=== PATIENT | male | born 1945 | race African-American/Black ===

== ENCOUNTER 2020-01-11 10:36 | Inpatient (IN) | payer OTHER ==
[~2020-01-11] VITALS: Ht 185.4 cm; Wt 67.7 kg
--- NOTE | 2020-01-11 10:55 | Emergency Room Report ---
History of Present Illness General Source: Patient, EMS Present Illness HPI Patient is a 74-year-old male past medical history of hypertension and PTSD who was brought into the ER from his boarding care by EMS for generalized weakness. Patient states that he is very tired and just needs a place to sleep. Patient 's landlord apparently called EMS because the patient has not been eating and has been weak. Patient denies any fever or chills. He denies any chest pain, abdominal pain or shortness of breath. Patient does states that he has not been eating and just needs to sleep. Allergies: Coded Allergies: No Known Allergies (Unverified , 01/11/20) Patient History Reviewed Nursing Documentation: PMH: Agreed; PSxH: Agreed Review of Systems All Other Systems: negative except mentioned in HPI Physical Exam Sp02 EP Interpretation: reviewed, normal General Appearance: alert, GCS 15, non-toxic, mild distress, thin, Chronically Ill Head: normocephalic, atraumatic Eyes: bilateral eye normal inspection, bilateral eye PERRL ENT: dry mucus membranes Neck: full range of motion, supple, no meningismus Respiratory: no respiratory distress, speaking full sentences Cardiovascular #1: tachycardia Gastrointestinal: non tender, soft, no guarding, no rebound Rectal: deferred Musculoskeletal: normal range of motion 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 Due to a high probability of clinically significant, life threatening deterioration, the patient required my highest level of preparedness to intervene emergently and I personally spent this critical care time directly and personally managing the patient. This critical care time included obtaining a history; examining the patient; pulse oximetry; ordering and review of studies; arranging urgent treatment with development of a management plan; evaluation of patient's response to treatment ; frequent reassessment; and, discussions with other providers.This critical care time was performed to assess and manage the high probability of imminent, life-threatening deterioration that could result in multi-organ failure. It was exclusive of separately billable procedures and treating other patients and teaching time. Please see MDM section and the rest of the note for further information on patient assessment and treatment. Medical Decision Making Diagnostic Impression: Primary Impression: Acute renal failure Additional Impressions: Dehydration Sepsis Rhabdomyolysis Elevated troponin Hypernatremia ER Course Patient reevaluated at 12:30 PM. His heart rate is improved. His heart rate is currently in the 90s. He is awake alert and talking. He states that he feels much better and is thirsty. Dr. Coleman called from radiology. He states that the patient has what appears to be a meningioma but is suggesting an MRI brain to ensure that there is no small bleed. MRI brain has been ordered and is pending. Patient pending MRI. Patient signed out to Dr. Chacon at 1400. If MRI demonstrates meningioma patient can be admitted here otherwise patient will need to be transferred to [facility] for higher level of care. EKG Diagnostic Results EKG Time: 10:55 EP Interpretation: Darshana Guillen MD Rate: tachycardiac Rhythm: other - Sinus tachycardia ST Segments: other - Fuhs T wave inversions ASA given to the pt in ED: No Rhythm Strip Diag. Results Rhythm Strip Time: 11:04 EP Interpretation: yes - Darshana Guillen MD Rate: 126 bpm Rhythm: NSR, no PVC's, no ectopy Chest X-Ray Diagnostic Results Chest X-Ray Diagnostic Results : Chest X-Ray Ordered: Yes # of Views/Limited/Complete: 1 View Indication: Other - weakness EP Interpretation: Yes Interpretation: no consolidation, no effusion, no pneumothorax, no acute cardiopulmonary disease Impression: No acute disease Electronically Signed by: Darshana Guillen MD Signed Out To: Dr. Chacon at 1400 Scripts Unable to Obtain Active Prescriptions or Reported Meds Additional Instructions: Please note that this report is being documented using [employer] technology. This can lead to erroneous entry secondary to incorrect interpretation by the dictating instrument. Sepsis Event Note Evaluation Current Stage of Sepsis: Sepsis Possible Source: Unknown Focused Exam Allergies: Coded Allergies: No Known Allergies (Unverified , 01/11/20) Date Exam Occurred: Jan 11, 2020 Time Exam Occurred: 12:21 Laboratory Studies Laboratory Tests Test 01/11/20 11:04 White Blood Count 14.0 K/UL (4.8-10.8) H Red Blood Count 6.31 M/UL (4.70-6.10) H Hemoglobin 18.6 G/DL (14.2-18.0) *H Hematocrit 60.0 % (42.0-52.0) H Mean Corpuscular Volume 95 FL (80-99) Mean Corpuscular Hemoglobin 29.5 PG (27.0-31.0) Mean Corpuscular Hemoglobin Concent 31.0 G/DL (32.0-36.0) L Red Cell Distribution Width 13.6 % (11.6-14.8) Platelet Count 294 K/UL (150-450) Mean Platelet Volume 6.7 FL (6.5-10.1) Neutrophils (%) (Auto) 82.4 % (45.0-75.0) H Lymphocytes (%) (Auto) 11.6 % (20.0-45.0) L Monocytes (%) (Auto) 5.0 % (1.0-10.0) Eosinophils (%) (Auto) 0.0 % (0.0-3.0) Basophils (%) (Auto) 0.9 % (0.0-2.0) Prothrombin Time 13.7 SEC (9.30-11.50) H Prothromb Time International Ratio 1.3 (0.9-1.1) H Activated Partial Thromboplast Time 28 SEC (23-33) Sodium Level 173 MMOL/L (136-145) *H Potassium Level 4.0 MMOL/L (3.5-5.1) Chloride Level 127 MMOL/L (98-107) H Carbon Dioxide Level 24 MMOL/L (21-32) Anion Gap 22 mmol/L (5-15) H Blood Urea Nitrogen 108 mg/dL (7-18) H Creatinine 5.2 MG/DL (0.55-1.30) H Estimat Glomerular Filtration Rate 13.2 mL/min (>60) Glucose Level 170 MG/DL (74-106) H Lactic Acid Level 3.00 mmol/L (0.4-2.0) H Calcium Level 10.3 MG/DL (8.5-10.1) H Magnesium Level 3.9 MG/DL (1.8-2.4) H Total Bilirubin 1.3 MG/DL (0.2-1.0) H Direct Bilirubin 0.2 MG/DL (0.0-0.3) Aspartate Amino Transf (AST/SGOT) 83 U/L (15-37) H Alanine Aminotransferase (ALT/SGPT) 47 U/L (12-78) Alkaline Phosphatase 58 U/L (46-116) Total Creatine Kinase 4250 U/L (26-308) H Troponin I 0.658 ng/mL (0.000-0.056) Pro-B-Type Natriuretic Peptide 408 pg/mL (0-125) H Total Protein 10.0 G/DL (6.4-8.2) H Albumin 4.7 G/DL (3.4-5.0) Globulin 5.3 g/dL Albumin/Globulin Ratio 0.9 (1.0-2.7) L Vital Signs Last 24 Hour Vital Signs Date Time Temp Pulse Resp B/P (MAP) Pulse Ox O2 Delivery O2 Flow Rate FiO2 01/11/20 10:51 98.8 130 16 100/70 (80) 99 Room Air Respiratory Exam: Clear Cardiovascular Exam: Tachycardia Capillary Refill: Less Than 2 Seconds Peripheral Pulse: Strong Darshana Guillen M.D. Jan 11, 2020 10:54
[2020-01-11 11:30] VITALS: BP 103/77
[2020-01-11 11:35] LABS: BASOPHILS % (AUTO) 0.9 % (0.0-2.0); LYMPHOCYTES % (AUTO) 11.6 % (20.0-45.0); MEAN CORPUSCULAR VOLUME 95 FL (80-99); NEUTROPHILS % (AUTO) 82.4 % (45.0-75.0); PLATELET COUNT 294 K/UL (150-450); RED BLOOD COUNT 6.31 M/UL (4.70-6.10); RED CELL DISTRIBUTION WIDTH 13.6 % (11.6-14.8)
[2020-01-11 11:46] LABS: HEMOGLOBIN 18.6 G/DL (14.2-18.0); INR 1.3 (0.9-1.1)
[2020-01-11 12:04] LABS: ALANINE AMINOTRANSFERASE 47 U/L (12-78); ALBUMIN 4.7 G/DL (3.4-5.0); ALBUMIN/GLOBULIN RATIO 0.9 (1.0-2.7); ALKALINE PHOSPHATASE 58 U/L (46-116); ANION GAP 22 mmol/L (5-15); ASPARTATE AMINO TRANSFERASE 83 U/L (15-37); BILIRUBIN,TOTAL 1.3 MG/DL (0.2-1.0); BLOOD UREA NITROGEN 108 mg/dL (7-18); CALCIUM 10.3 MG/DL (8.5-10.1); CARBON DIOXIDE 24 MMOL/L (21-32); CHLORIDE 127 MMOL/L (98-107); CREATINE KINASE 4250 U/L (26-308); CREATININE 5.2 MG/DL (0.55-1.30)
[2020-01-11 12:06] LABS: BILIRUBIN,DIRECT 0.2 MG/DL (0.0-0.3); SODIUM 173 MMOL/L (136-145)
[2020-01-11] MEDS ORDERED: Vancomycin 1 GM in NS 275 ML IVPB ONE (12:15)
[2020-01-11] MEDS ORDERED: Cefepime HCl 2 GM in D5W 55 ML IVPB ONE (12:15)
[2020-01-11] MEDS ORDERED: Sodium Bicarbonate 50ml Carp IV ONE (12:30)
[2020-01-11] MEDS ORDERED: Sodium Bicarbonate 150 ML in 1/2 NS 1000ml 1,000 ML IV ONE (12:30)
[2020-01-11] MEDS: Aspirin Baby 81mg ORAL ONE ×2 (12:50→18:20)
--- NOTE | 2020-01-11 13:04 | Diagnostic Imaging Report ---
Indications: Altered mental status and weakness Technique: Spiral acquisitions obtained through the brain. Angled axial and coronal 5 x 5 mm slices were reconstructed. Total dose length product 1072 mGycm. CTDI vol(s) 53 mGy. Dose reduction achieved using automated exposure control Comparison: None. Findings: 8 x 6 mm hyperattenuating focus protrudes from the left side of the posterior falx. This does not result in any significant mass effect. No other evidence of acute intracranial hemorrhage or edema. No mass effect nor midline shift. There is an area of encephalomalacia in the inferior medial parasagittal right frontal lobe. There is a much smaller area of encephalomalacia in the adjacent inferior medial parasagittal left frontal lobe. Otherwise normal pineda-white differentiation. Visualized orbits and sinuses are unremarkable. The mastoids are clear. The calvarium is intact. Impression: 8 x 6 mm hyperattenuating focus protruding the left side of posterior falx. Most likely a tiny meningioma. No resultant mass effect. Tiny focus of extra-axial hemorrhage deemed much less likely but not completely excludable. Consider MRI to clarify if clinically indicated, or compare to any prior studies that may be available. No other evidence of acute intracranial hemorrhage or mass effect. Bilateral right greater than left frontal encephalomalacia, may indicate prior infarcts or contusions. Other chronic and age-related changes, as described No The CT scanner at [facility] is accredited by the [employer] and the scans are performed using protocols designed to limit radiation exposure to as low as reasonably achievable to attain images of sufficient resolution adequate for diagnostic evaluation.
[2020-01-11 14:10] VITALS: BP 113/82
--- NOTE | 2020-01-11 16:06 | Diagnostic Imaging Report ---
Indication: Cough Technique: One view of the chest Comparison: none Findings: Lungs are hyperinflated. Lungs and pleural spaces are clear. The heart size is normal. Impression: No acute process
[2020-01-11 16:21] VITALS: BP 110/79
--- NOTE | 2020-01-11 16:21 | Diagnostic Imaging Report ---
Indication: Altered mental status, evaluation of abnormality seen on prior CT scan Technique: sagittal T1 fast spin echo, axial T1 FLAIR, axial T2 FLAIR, axial T2 FS PROPELLER, axial T2* GRE, axial diffusion weighted images. ADC and exponential ADC maps generated. No postcontrast imaging obtained. Comparison: Reference made to brain CT of 3 hours earlier Findings: No postcontrast images obtained, per patient request. This somewhat limits exam. Corresponding to the abnormality described in the adjacent to the left side of the posterior falx is a 6 x 5 mm focus. This demonstrates intermediate signal intensity on most of the sequences, with a very slight low signal intensity rim. It does demonstrate low signal intensity on the diffusion images. No abnormal areas of restricted diffusion to suggest acute infarction. No acute hemorrhage or edema. No mass effect nor midline shift. Mild age-related enlargement of the ventricles and extra-axial CSF spaces is noted. Encephalomalacia in the right anterior inferior frontal lobe is noted. There is also small amount of encephalomalacia in the left anterior inferior frontal lobe. These findings were also described on recent CT scan. The vascular flow voids are preserved. The visualized orbits and sinuses are unremarkable.. Visualized orbits and sinuses are unremarkable. 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
[2020-01-11 18:00] VITALS: BP 114/60
--- NOTE | 2020-01-11 18:06 | Cardiac Electrophysiology PN ---
Subjective Subjective [id number] Objective Last 24 Hour Vital Signs Date Time Temp Pulse Resp B/P (MAP) Pulse Ox O2 Delivery O2 Flow Rate FiO2 01/11/20 16:21 98.8 88 19 110/79 100 Room Air 01/11/20 14:10 98.8 87 17 113/82 96 Room Air 01/11/20 11:30 98.8 85 18 103/77 97 Room Air 01/11/20 11:30 123 17 Room Air 99 01/11/20 10:51 98.8 130 16 100/70 (80) 99 Room Air Laboratory Tests Test 01/11/20 11:04 01/11/20 12:15 White Blood Count 14.0 K/UL (4.8-10.8) H Red Blood Count 6.31 M/UL (4.70-6.10) H Hemoglobin 18.6 G/DL (14.2-18.0) *H Hematocrit 60.0 % (42.0-52.0) H Mean Corpuscular Volume 95 FL (80-99) Mean Corpuscular Hemoglobin 29.5 PG (27.0-31.0) Mean Corpuscular Hemoglobin Concent 31.0 G/DL (32.0-36.0) L Red Cell Distribution Width 13.6 % (11.6-14.8) Platelet Count 294 K/UL (150-450) Mean Platelet Volume 6.7 FL (6.5-10.1) Neutrophils (%) (Auto) 82.4 % (45.0-75.0) H Lymphocytes (%) (Auto) 11.6 % (20.0-45.0) L Monocytes (%) (Auto) 5.0 % (1.0-10.0) Eosinophils (%) (Auto) 0.0 % (0.0-3.0) Basophils (%) (Auto) 0.9 % (0.0-2.0) Prothrombin Time 13.7 SEC (9.30-11.50) H Prothromb Time International Ratio 1.3 (0.9-1.1) H Activated Partial Thromboplast Time 28 SEC (23-33) Sodium Level 173 MMOL/L (136-145) *H Potassium Level 4.0 MMOL/L (3.5-5.1) Chloride Level 127 MMOL/L (98-107) H Carbon Dioxide Level 24 MMOL/L (21-32) Anion Gap 22 mmol/L (5-15) H Blood Urea Nitrogen 108 mg/dL (7-18) H Creatinine 5.2 MG/DL (0.55-1.30) H Estimat Glomerular Filtration Rate 13.2 mL/min (>60) Glucose Level 170 MG/DL (74-106) H Lactic Acid Level 3.00 mmol/L (0.4-2.0) H 3.00 mmol/L (0.66-2.22) H Calcium Level 10.3 MG/DL (8.5-10.1) H Magnesium Level 3.9 MG/DL (1.8-2.4) H Total Bilirubin 1.3 MG/DL (0.2-1.0) H Direct Bilirubin 0.2 MG/DL (0.0-0.3) Aspartate Amino Transf (AST/SGOT) 83 U/L (15-37) H Alanine Aminotransferase (ALT/SGPT) 47 U/L (12-78) Alkaline Phosphatase 58 U/L (46-116) Total Creatine Kinase 4250 U/L (26-308) H Troponin I 0.658 ng/mL (0.000-0.056) Pro-B-Type Natriuretic Peptide 408 pg/mL (0-125) H Total Protein 10.0 G/DL (6.4-8.2) H Albumin 4.7 G/DL (3.4-5.0) Globulin 5.3 g/dL Albumin/Globulin Ratio 0.9 (1.0-2.7) Huan Martínez MD Jan 11, 2020 18:06
--- NOTE | 2020-01-11 18:09 | History and Physical ---
History of Present Illness General Date patient seen: Jan 11, 2020 Time patient seen: 17:45 Reason for Hospitalization: Generalized Weakness Present Illness HPI 74 year old gentlemen who is a poor historian with unknown PMG presents from [facility] with lethargy and weakness. He stats he has been feeling tired for the last week. He states he has been eating one meal a day and drinking water. He has no fever, dysuria, abdominal pain, chest pain, cough or SOB. He states he wants to go back to his room and the [facility] and care and does not want to be here. In the ED he was rehydrated and become more alert. Labs are significant for hypernatremia of 173 and Cr of 5. Hed CT shows minegioma and MRI showe encephalomalacia. Trop elevated to .6 Allergies: Coded Allergies: No Known Allergies (Unverified , 01/11/20) COVID-19 Screening Contact w/high risk pt: No Experienced COVID-19 symptoms?: No Medication History Unable to Obtain Active Prescriptions or Reported Meds Medications Narrative Unkown due to poor insight and medical condition. Patient History Limited by: medical condition Healthcare decision maker Resuscitation status Full code Advanced Directive on File Past Medical/Surgical History Past Medical/Surgical History: (1) H/O abdominal surgery Family History Family History: FH: CAD (coronary artery disease) Social History Social History: (1) Former smoker Review of Systems Constitutional: Reports: malaise, weakness; Denies: sweats, fever Eye: Denies: blurred vision, tearing, double vision ENT: Denies: ear discharge, nose pain, nose congestion Respiratory: Denies: orthopnea, shortness of breath, stridor, wheezing Cardiovascular: Denies: chest pain, edema, palpitations, syncope Gastrointestinal: Denies: abdominal pain, constipation, diarrhea, nausea, vomiting Genitourinary: Denies: discharge, dysuria, frequency, pain Musculoskeletal: Denies: back pain, joint pain, joint swelling Skin: Denies: change in color, change in hair/nails, dryness Psychiatric: Denies: SI, HI, hallucinations Neurological: Denies: headache, numbness, paresthesia, seizure Endocrine: Denies: excessive sweating, flushing, increased thirst, increased urine Hematologic/Lymphatic: Denies: anemia, blood clots, easy bleeding ROS Narrative Poor historian Physical Exam General Appearance: no apparent distress, confused, agitated, cachetic Lines, tubes and drains: peripheral HEENT: normocephalic, atraumatic, anicteric, other - dry mucus membranes Neck: non-tender, supple, normal inspection Respiratory/Chest: chest wall non-tender, lungs clear, normal breath sounds, no respiratory distress, no accessory muscle use Cardiovascular/Chest: regular rhythm, no gallop/murmur, no JVD, tachycardia Abdomen: normal bowel sounds, non tender, soft, no organomegaly, no mass, other - scar on abdomen Extremities: non-tender, no edema Skin Exam: other - dry 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, no motor/sensory deficits, responsive, disoriented Last 24 Hour Vital Signs Date Time Temp Pulse Resp B/P (MAP) Pulse Ox O2 Delivery O2 Flow Rate FiO2 01/11/20 16:21 98.8 88 19 110/79 100 Room Air 01/11/20 14:10 98.8 87 17 113/82 96 Room Air 01/11/20 11:30 98.8 85 18 103/77 97 Room Air 01/11/20 11:30 123 17 Room Air 99 01/11/20 10:51 98.8 130 16 100/70 (80) 99 Room Air Laboratory Tests Test 01/11/20 11:04 01/11/20 12:15 White Blood Count 14.0 K/UL (4.8-10.8) H Red Blood Count 6.31 M/UL (4.70-6.10) H Hemoglobin 18.6 G/DL (14.2-18.0) *H Hematocrit 60.0 % (42.0-52.0) H Mean Corpuscular Volume 95 FL (80-99) Mean Corpuscular Hemoglobin 29.5 PG (27.0-31.0) Mean Corpuscular Hemoglobin Concent 31.0 G/DL (32.0-36.0) L Red Cell Distribution Width 13.6 % (11.6-14.8) Platelet Count 294 K/UL (150-450) Mean Platelet Volume 6.7 FL (6.5-10.1) Neutrophils (%) (Auto) 82.4 % (45.0-75.0) H Lymphocytes (%) (Auto) 11.6 % (20.0-45.0) L Monocytes (%) (Auto) 5.0 % (1.0-10.0) Eosinophils (%) (Auto) 0.0 % (0.0-3.0) Basophils (%) (Auto) 0.9 % (0.0-2.0) Prothrombin Time 13.7 SEC (9.30-11.50) H Prothromb Time International Ratio 1.3 (0.9-1.1) H Activated Partial Thromboplast Time 28 SEC (23-33) Sodium Level 173 MMOL/L (136-145) *H Potassium Level 4.0 MMOL/L (3.5-5.1) Chloride Level 127 MMOL/L (98-107) H Carbon Dioxide Level 24 MMOL/L (21-32) Anion Gap 22 mmol/L (5-15) H Blood Urea Nitrogen 108 mg/dL (7-18) H Creatinine 5.2 MG/DL (0.55-1.30) H Estimat Glomerular Filtration Rate 13.2 mL/min (>60) Glucose Level 170 MG/DL (74-106) H Lactic Acid Level 3.00 mmol/L (0.4-2.0) H 3.00 mmol/L (0.66-2.22) H Calcium Level 10.3 MG/DL (8.5-10.1) H Magnesium Level 3.9 MG/DL (1.8-2.4) H Total Bilirubin 1.3 MG/DL (0.2-1.0) H Direct Bilirubin 0.2 MG/DL (0.0-0.3) Aspartate Amino Transf (AST/SGOT) 83 U/L (15-37) H Alanine Aminotransferase (ALT/SGPT) 47 U/L (12-78) Alkaline Phosphatase 58 U/L (46-116) Total Creatine Kinase 4250 U/L (26-308) H Troponin I 0.658 ng/mL (0.000-0.056) Pro-B-Type Natriuretic Peptide 408 pg/mL (0-125) H Total Protein 10.0 G/DL (6.4-8.2) H Albumin 4.7 G/DL (3.4-5.0) Globulin 5.3 g/dL Albumin/Globulin Ratio 0.9 (1.0-2.7) L Height (Feet): 6 Height (Inches): 1.00 Weight (Pounds): 150 Medications Current Medications Medications (Trade) Dose Ordered Sig/Vlad Route PRN Reason Start Time Stop Time Status Last Admin Dose Admin Acetaminophen (Tylenol) 650 mg Q4H PRN ORAL Mild Pain (Pain Scale 1-3) 01/11/20 17:45 02/10/20 17:44 UNV Acetaminophen (Tylenol) 650 mg Q4H PRN ORAL Temp >100.5 01/11/20 17:45 02/10/20 17:44 UNV Dextrose (Dextrose 50%) 25 ml Q30M PRN IV Hypoglycemia 01/11/20 17:45 04/10/20 17:44 UNV Dextrose (Dextrose 50%) 50 ml Q30M PRN IV Hypoglycemia 01/11/20 17:45 04/10/20 17:44 UNV Dextrose/Sodium Chloride 1,000 ml @ 100 mls/hr Q10H IV 01/11/20 18:38 01/12/20 08:37 UNV Diphenhydramine HCl (Benadryl) 25 mg Q6H PRN ORAL Itching/Pruritis 01/11/20 17:45 02/10/20 17:44 UNV Heparin Sodium (Porcine) (Heparin 5000 units/ml) 5,000 units EVERY 12 HOURS SUBQ 01/11/20 21:00 02/25/20 20:59 UNV Ondansetron HCl (Zofran) 4 mg Q6H PRN IVP Nausea & Vomiting 01/11/20 17:45 02/10/20 17:44 UNV Sodium Bicarbonate 150 ml/Sodium Chloride 1,150 ml @ 150 mls/hr Q7H40M ONCE IV 01/11/20 12:30 01/11/20 20:09 01/11/20 12:49 Assessment/Plan Problem List: (1) Dehydration ICD Codes: E86.0 - Dehydration SNOMED: 69466400, 925044234, 146755335 (2) Sepsis ICD Codes: A41.9 - Sepsis, unspecified organism SNOMED: 62668724, 035501142, 222609806 (3) Rhabdomyolysis ICD Codes: M62.82 - Rhabdomyolysis SNOMED: 893323336 (4) Hypernatremia ICD Codes: E87.0 - Hyperosmolality and hypernatremia SNOMED: 330512964 (5) Acute renal failure ICD Codes: N17.9 - Acute kidney failure, unspecified SNOMED: 06463647 (6) Elevated troponin ICD Codes: R79.89 - Other specified abnormal findings of blood chemistry SNOMED: 539444446, 522172188, 746547750 Assessment/Plan: 74 year old male with an unknown PMH from board and care presents with severe dehydration. #Severe Volume Depletion #Sepsis with unknown source # Hypernatremia # Rhabdomyolysis # Acute renal failure # Lactacidosis # Polycythemia due to volume contraction -Telemetry monitoring -D5 1/2 NS for 12 hours at 125CC -Po hydration -Trend CK -Trend Sodium -Trend lactate -Hold nephrotoxic meds -Consult to nephrology -Regular diet -Blood cultures, UA, CXR clear #Elevated troponin with no chest pain - likely demand ischemia - Trend troponin - EKG shows possible inferolateral ischemia - Consult cardiology - Obtain records #Meningioma #Encephalomalacia -Follow up with neurology OP Heparin subQ for DVT PPx I spent 74 minutes on this patient with 45 minutes coordinating care with counseling. Discussed with Dr. Clark and Dr. De Luna. Reviewed imaging and labs. Discussed whit DEWAYNE. Butch Murray M.D. Jan 11, 2020 18:09
--- NOTE | 2020-01-11 19:00 | Consultation ---
History of Present Illness General Chief Complaint: Generalized Weakness Reason for Consultation: TOM, hypernatremia Present Illness HPI 74 year old gentlemen who is a poor historian with unknown past medical history presents from [facility] with lethargy and weakness. He stats he has been feeling tired for the last week. He states he has been eating one meal a day and drinking water. He has no fever, dysuria, abdominal pain, chest pain, cough or SOB. He states he wants to go back to his room and the [facility] and does not want to be here. In the ED he was rehydrated and become more alert. Labs are significant for hypernatremia of 173 and Cr of 5. CT shows miningioma and MRI showe encephalomalacia. Trop elevated to .6 Allergies: Coded Allergies: No Known Allergies (Unverified , 01/11/20) Medication History Unable to Obtain Active Prescriptions or Reported Meds Patient History Healthcare decision maker Resuscitation status Advanced Directive on File Review of Systems All Other Systems: negative except mentioned in HPI Physical Exam General Appearance: no apparent distress, lethargic Lines, tubes and drains: peripheral HEENT: normocephalic, atraumatic, anicteric Neck: non-tender, normal alignment, supple, normal inspection Respiratory/Chest: lungs clear, normal breath sounds Cardiovascular/Chest: normal peripheral pulses, normal rate, regular rhythm Abdomen: normal bowel sounds, non tender, soft Extremities: normal capillary refill Neurologic: alert, oriented x 3, responsive Last 24 Hour Vital Signs Date Time Temp Pulse Resp B/P (MAP) Pulse Ox O2 Delivery O2 Flow Rate FiO2 01/11/20 18:00 98.8 84 17 113/75 99 Room Air 01/11/20 16:21 98.8 88 19 110/79 100 Room Air 01/11/20 14:10 98.8 87 17 113/82 96 Room Air 01/11/20 11:30 98.8 85 18 103/77 97 Room Air 01/11/20 11:30 123 17 Room Air 99 01/11/20 10:51 98.8 130 16 100/70 (80) 99 Room Air Laboratory Tests Test 01/11/20 11:04 01/11/20 12:15 White Blood Count 14.0 K/UL (4.8-10.8) H Red Blood Count 6.31 M/UL (4.70-6.10) H Hemoglobin 18.6 G/DL (14.2-18.0) *H Hematocrit 60.0 % (42.0-52.0) H Mean Corpuscular Volume 95 FL (80-99) Mean Corpuscular Hemoglobin 29.5 PG (27.0-31.0) Mean Corpuscular Hemoglobin Concent 31.0 G/DL (32.0-36.0) L Red Cell Distribution Width 13.6 % (11.6-14.8) Platelet Count 294 K/UL (150-450) Mean Platelet Volume 6.7 FL (6.5-10.1) Neutrophils (%) (Auto) 82.4 % (45.0-75.0) H Lymphocytes (%) (Auto) 11.6 % (20.0-45.0) L Monocytes (%) (Auto) 5.0 % (1.0-10.0) Eosinophils (%) (Auto) 0.0 % (0.0-3.0) Basophils (%) (Auto) 0.9 % (0.0-2.0) Prothrombin Time 13.7 SEC (9.30-11.50) H Prothromb Time International Ratio 1.3 (0.9-1.1) H Activated Partial Thromboplast Time 28 SEC (23-33) Sodium Level 173 MMOL/L (136-145) *H Potassium Level 4.0 MMOL/L (3.5-5.1) Chloride Level 127 MMOL/L (98-107) H Carbon Dioxide Level 24 MMOL/L (21-32) Anion Gap 22 mmol/L (5-15) H Blood Urea Nitrogen 108 mg/dL (7-18) H Creatinine 5.2 MG/DL (0.55-1.30) H Estimat Glomerular Filtration Rate 13.2 mL/min (>60) Glucose Level 170 MG/DL (74-106) H Lactic Acid Level 3.00 mmol/L (0.4-2.0) H 3.00 mmol/L (0.66-2.22) H Calcium Level 10.3 MG/DL (8.5-10.1) H Magnesium Level 3.9 MG/DL (1.8-2.4) H Total Bilirubin 1.3 MG/DL (0.2-1.0) H Direct Bilirubin 0.2 MG/DL (0.0-0.3) Aspartate Amino Transf (AST/SGOT) 83 U/L (15-37) H Alanine Aminotransferase (ALT/SGPT) 47 U/L (12-78) Alkaline Phosphatase 58 U/L (46-116) Total Creatine Kinase 4250 U/L (26-308) H Troponin I 0.658 ng/mL (0.000-0.056) Pro-B-Type Natriuretic Peptide 408 pg/mL (0-125) H Total Protein 10.0 G/DL (6.4-8.2) H Albumin 4.7 G/DL (3.4-5.0) Globulin 5.3 g/dL Albumin/Globulin Ratio 0.9 (1.0-2.7) L Height (Feet): 6 Height (Inches): 1.00 Weight (Pounds): 150 Medications Current Medications Medications (Trade) Dose Ordered Sig/Vlad Route PRN Reason Start Time Stop Time Status Last Admin Dose Admin Acetaminophen (Tylenol) 650 mg Q4H PRN ORAL Mild Pain (Pain Scale 1-3) 01/11/20 17:45 02/10/20 17:44 Acetaminophen (Tylenol) 650 mg Q4H PRN ORAL Temp >100.5 01/11/20 17:45 02/10/20 17:44 Aspirin (Ecotrin) 81 mg DAILY ORAL 01/12/20 09:00 02/26/20 08:59 Dextrose (Dextrose 50%) 25 ml Q30M PRN IV Hypoglycemia 01/11/20 17:45 04/10/20 17:44 Dextrose (Dextrose 50%) 50 ml Q30M PRN IV Hypoglycemia 01/11/20 17:45 04/10/20 17:44 Dextrose/Sodium Chloride 1,000 ml @ 100 mls/hr Q10H IV 01/11/20 18:38 01/12/20 08:37 Diphenhydramine HCl (Benadryl) 25 mg Q6H PRN ORAL Itching/Pruritis 01/11/20 17:45 02/10/20 17:44 Heparin Sodium (Porcine) (Heparin 5000 units/ml) 5,000 units EVERY 12 HOURS SUBQ 01/11/20 21:00 02/25/20 20:59 Metoprolol Tartrate (Lopressor) 12.5 mg Q12HR ORAL 01/11/20 21:00 04/10/20 20:59 Ondansetron HCl (Zofran) 4 mg Q6H PRN IVP Nausea & Vomiting 01/11/20 17:45 02/10/20 17:44 Sodium Bicarbonate 150 ml/Sodium Chloride 1,150 ml @ 150 mls/hr Q7H40M ONCE IV 01/11/20 12:30 01/11/20 20:09 01/11/20 12:49 Assessment/Plan Diagnosis [place] I: #TOM likely pre-renal azotemia due to dehydration and rhabdo- r/o ATN #lactic acidosis #hypernatremia #Tropenemia #transaminitis #possible rhabdo #meningioma - IVF with 1/2ns at 150cc/hr - check labs tonight - avoid rapid correction of sodium - target 1-2 per hour - cardiology eval for elevated trop -tren CK and lactic acid - replete mag and phos as needed - renal US if Cr fails to improve with hydration -continue vanco and cefepime - monitor vanco level closely - avoid nephrotoxins - strict i&os - daily weights Taylor Clark M.D. Jan 11, 2020 19:00
[2020-01-11 20:00] VITALS: BP 117/77
[2020-01-11] MEDS: D5 1/2NS 1,000 ML IV SCH (20:02)
--- NOTE | 2020-01-11 20:15 | Consultation ---
DATE OF CONSULTATION: 01/11/2020 CARDIOLOGY CONSULTATION CONSULTING PHYSICIAN: Huan De Luna MD. REASON FOR CONSULTATION: Elevated troponin and management of hypertension. HISTORY OF PRESENT ILLNESS: Patient is a 74-year-old gentleman with history of hypertension and posttraumatic stress disorder who was brought to the emergency room from [facility] and care with generalized weakness. Patient states that he is very tired and just needs a place to sleep. Patient specifically does not have any chest pain or shortness of breath. He is quite alert and oriented. called the paramedics because patient has not been eating, has been very weak. Patient denies any fever or chills or loss of appetite and states that he has been eating and drinking and it does not seem like it. In the emergency room, patient was noted to have a sodium of 170, hemoglobin of 18, and acute renal failure as well as rhabdomyolysis and elevated troponin. Cardiology consultation was obtained for further management. REVIEW OF SYSTEMS: Negative other than what is mentioned in history of present illness. PAST MEDICAL HISTORY: As mentioned above. FAMILY HISTORY: Noncontributory. SOCIAL HISTORY: He lives in assisted living. Does not smoke or drink alcohol. PHYSICAL EXAMINATION: VITAL SIGNS: Blood pressure is 110/79, pulse is 88, respirations 18, temperature 98.8. HEAD AND NECK: Showed no JVD. LUNGS: Clear. CARDIOVASCULAR: Regular S1 and S2 with no gallop or murmur. ABDOMEN: Soft. EXTREMITIES: No pitting edema. LABORATORY DATA: Labs show sodium 173, potassium is 4.0, BUN of 108, creatinine of 5.2, and glucose of 170. Lactic acid is 3. Troponin 0.658. CK is 4250. BNP is 408. White count is 14, hemoglobin 18.6, hematocrit of 60, and platelet count is 294,000. INR is 1.3. ASSESSMENT AND PLAN: 1. Elevated troponin, likely due to patient's renal failure. Patient does not have any chest pain. EKG also showed inferolateral ischemia. We will repeat the EKG in the morning and get an echocardiogram and completely rule out MA protocol. 2. Severe hypernatremia. Patient is on half-normal saline with bicarb. BMP will be repeated in the morning. 3. Acute renal failure, again likely due to dehydration. Patient is on IV fluid. 4. Rhabdomyolysis with a CK of more than 4000. Renal failure may be related to that, but again patient is getting hydration. 5. Lactic acidosis. Thank you very much for allowing me to participate in the care of this patient. Please do not hesitate to contact me for any questions regarding my evaluation. Huan De Luna M.D. DR: STACY JOB#: [id number] CC:
[2020-01-11] MEDS: Metoprolol Tartrate 12.5mg TAB ORAL SCH (20:49)
[2020-01-11] MEDS: Heparin 5000 units/ml inj SUBQ SCH (20:50)
[2020-01-11 20:54] LABS: ANION GAP 11 mmol/L (5-15); BLOOD UREA NITROGEN 102 mg/dL (7-18); CALCIUM 8.3 MG/DL (8.5-10.1); CARBON DIOXIDE 33 MMOL/L (21-32); CHLORIDE 118 MMOL/L (98-107); CREATININE 3.6 MG/DL (0.55-1.30); POTASSIUM 3.6 MMOL/L (3.5-5.1)
[2020-01-11 21:02] LABS: SODIUM 162 MMOL/L (136-145)
[2020-01-11 21:11] LABS: CREATINE KINASE 4054 U/L (26-308)
[2020-01-12] VITALS: BP 111/71
[2020-01-12 04:00] VITALS: BP 123/72
[2020-01-12] MEDS: D5 1/2NS 1,000 ML IV SCH (04:59)
[2020-01-12 05:23] LABS: EOSINOPHILS % (AUTO) 1.1 % (0.0-3.0); HEMATOCRIT 40.9 % (42.0-52.0); HEMOGLOBIN 13.1 G/DL (14.2-18.0); LYMPHOCYTES % (AUTO) 15.4 % (20.0-45.0); MEAN CORPUSCULAR VOLUME 93 FL (80-99); MONOCYTES % (AUTO) 3.7 % (1.0-10.0); NEUTROPHILS % (AUTO) 78.9 % (45.0-75.0); PLATELET COUNT 202 K/UL (150-450); RED BLOOD COUNT 4.41 M/UL (4.70-6.10); RED CELL DISTRIBUTION WIDTH 12.8 % (11.6-14.8); WHITE BLOOD COUNT 10.6 K/UL (4.8-10.8)
[2020-01-12 05:50] LABS: ALANINE AMINOTRANSFERASE 52 U/L (12-78); ALBUMIN/GLOBULIN RATIO 0.9 (1.0-2.7); ALKALINE PHOSPHATASE 37 U/L (46-116); ANION GAP 5 mmol/L (5-15); ASPARTATE AMINO TRANSFERASE 77 U/L (15-37); BILIRUBIN,TOTAL 1.6 MG/DL (0.2-1.0); BLOOD UREA NITROGEN 83 mg/dL (7-18); CALCIUM 7.7 MG/DL (8.5-10.1); CARBON DIOXIDE 33 MMOL/L (21-32); CHLORIDE 116 MMOL/L (98-107); CREATININE 2.3 MG/DL (0.55-1.30); POTASSIUM 3.2 MMOL/L (3.5-5.1); SODIUM 154 MMOL/L (136-145)
[2020-01-12 05:56] LABS: BILIRUBIN,DIRECT 0.2 MG/DL (0.0-0.3)
[2020-01-12 08:00] VITALS: BP 96/65
[2020-01-12] MEDS: Metoprolol Tartrate 12.5mg TAB ORAL SCH ×3 (08:16→21:20)
[2020-01-12] MEDS: Heparin 5000 units/ml inj SUBQ SCH ×3 (08:16→21:19)
[2020-01-12] MEDS ORDERED: Aspirin EC 81mg tab ORAL SCH (09:00)
[2020-01-12 09:28] LABS: CREATINE KINASE 3521 U/L (26-308)
--- NOTE | 2020-01-12 11:30 | General Progress Note ---
Assessment/Plan Problem List: (1) Dehydration ICD Codes: E86.0 - Dehydration SNOMED: 49965986, 264825273, 459483773 (2) Sepsis ICD Codes: A41.9 - Sepsis, unspecified organism SNOMED: 03508679, 477312296, 084409378 (3) Rhabdomyolysis ICD Codes: M62.82 - Rhabdomyolysis SNOMED: 661360971 (4) Hypernatremia ICD Codes: E87.0 - Hyperosmolality and hypernatremia SNOMED: 861586084 (5) Acute renal failure ICD Codes: N17.9 - Acute kidney failure, unspecified SNOMED: 12856789 (6) Elevated troponin ICD Codes: R79.89 - Other specified abnormal findings of blood chemistry SNOMED: 117411050, 995518828, 870565187 Assessment/Plan: 74 year old male with an unknown PMH from board and care presents with severe dehydration. #Severe Volume Depletion - improving # Hypernatremia -improving # Rhabdomyolysis - improving # Acute renal failure # Lactacidosis - resolved # Polycythemia due to volume contraction -improved -Telemetry monitoring -D5 1/2 NS for 12 hours at 125CC -Po hydration -Trend CK -Trend Sodium -Trend lactate -Hold nephrotoxic meds -Consult to nephrology -Regular diet -Blood cultures, UA, CXR clear #Elevated troponin with no chest pain - downtrended - likely demand ischemia - Trend troponin complete - EKG shows possible inferolateral ischemia - Consult cardiology - Obtain records #Meningioma #Encephalomalacia -Follow up with neurology OP Heparin subQ for DVT PPx I spent 34 minutes on this patient with 25 minutes coordinating care with counseling. Discussed with Dr. Clark and Dr. De Luna. Reviewed imaging and labs. Discussed whit RN. Subjective Date patient seen: Jan 12, 2020 Time patient seen: 11:26 ROS Limited/Unobtainable: Yes Constitutional: Denies: fever, malaise, weakness HEENT: Denies: blurred vision, double vision, nose pain, nose congestion Cardiovascular: Denies: chest pain, edema, irregular heart rate, lightheadedness, palpitations, syncope Respiratory: Denies: cough, orthopnea, shortness of breath, SOB with excertion , SOB at rest, sputum Gastrointestinal/Abdominal: Denies: abdomen distended, abdominal pain, black stools, tarry stools, blood in stool Genitourinary: Denies: burning, discharge, frequency, flank pain, hematuria Neurologic/Psychiatric: Denies: anxiety, depressed, emotional problems, headache, numbness, paresthesia Endocrine: Denies: excessive sweating, flushing, intolerance to cold Hematologic/Lymphatic: Denies: anemia, easy bleeding Allergies: Coded Allergies: No Known Allergies (Unverified , 01/11/20) Subjective Feels better today. No CP. Objective Last 24 Hour Vital Signs Date Time Temp Pulse Resp B/P (MAP) Pulse Ox O2 Delivery O2 Flow Rate FiO2 01/12/20 08:16 78 97/60 01/12/20 08:15 77 01/12/20 08:00 Room Air 01/12/20 08:00 98.7 78 20 96/65 (75) 96 78 01/12/20 04:00 Room Air 01/12/20 04:00 97.5 74 15 123/72 (89) 78 01/12/20 03:35 73 01/12/20 00:00 Room Air 01/12/20 00:00 97.6 74 15 111/71 (84) 78 01/11/20 23:33 75 01/11/20 20:49 78 117/77 01/11/20 20:00 Room Air 01/11/20 20:00 97.5 78 15 117/77 (90) 78 01/11/20 19:39 Room Air 01/11/20 19:37 94 01/11/20 18:00 98.0 81 22 114/60 (78) 99 01/11/20 18:00 98.8 84 17 113/75 99 Room Air 01/11/20 16:21 98.8 88 19 110/79 100 Room Air 01/11/20 14:10 98.8 87 17 113/82 96 Room Air 01/11/20 11:30 98.8 85 18 103/77 97 Room Air 01/11/20 11:30 123 17 Room Air 99 Intake and Output 01/11/20 01/12/20 19:00 07:00 Intake Total 900 ml 1396 ml Balance 900 ml 1396 ml Intake Oral 0 ml 300 ml IV Total 900 ml 1096 ml # Voids 2 # Bowel Movements 2 Laboratory Tests 01/11/20 12:15: Lactic Acid Level 3.00H 01/11/20 20:15: Lactic Acid Level 2.60H, Sodium Level 162#*H, Potassium Level 3.6, Chloride Level 118H, Carbon Dioxide Level 33H, Anion Gap 11, Blood Urea Nitrogen 102H, Creatinine 3.6H, Estimat Glomerular Filtration Rate 20.2, Glucose Level 157H, Calcium Level 8.3L, Total Creatine Kinase 4054H, Troponin I 0.607H 01/12/20 03:30: Total Creatine Kinase 3521H 01/12/20 03:35: Sodium Level 154H, Potassium Level 3.2L, Chloride Level 116H, Carbon Dioxide Level 33H, Anion Gap 5, Blood Urea Nitrogen 83H, Creatinine 2.3H, Estimat Glomerular Filtration Rate 33.8, Glucose Level 162H, Calcium Level 7.7L, Troponin I 0.445H, White Blood Count 10.6, Red Blood Count 4.41L, Hemoglobin 13.1L, Hematocrit 40.9#L, Mean Corpuscular Volume 93, Mean Corpuscular Hemoglobin 29.8, Mean Corpuscular Hemoglobin Concent 32.0, Red Cell Distribution Width 12.8, Platelet Count 202, Mean Platelet Volume 7.3, Neutrophils (%) (Auto) 78.9H, Lymphocytes (%) (Auto) 15.4L, Monocytes (%) (Auto ) 3.7, Eosinophils (%) (Auto) 1.1, Basophils (%) (Auto) 1.0, Phosphorus Level 3.8, Total Bilirubin 1.6H, Direct Bilirubin 0.2, Aspartate Amino Transf (AST/ SGOT) 77H, Alanine Aminotransferase (ALT/SGPT) 52, Alkaline Phosphatase 37L, Total Protein 6.4#, Albumin 3.0L, Globulin 3.4, Albumin/Globulin Ratio 0.9L, Thyroid Stimulating Hormone (TSH) 0.977, Free Thyroxine 0.99 Height (Feet): 6 Height (Inches): 1.00 Weight (Pounds): 147 General Appearance: no apparent distress, alert, thin, alert oriented x3 EENT: PERRL/EOMI, normal ENT inspection Neck: non-tender, normal alignment, supple Cardiovascular: normal peripheral pulses, normal rate, regular rhythm, regularly irregular Respiratory/Chest: chest wall non-tender, lungs clear, normal breath sounds, no respiratory distress, no accessory muscle use Abdomen: normal bowel sounds, non tender, soft, no organomegaly, no mass Pelvis: normal external exam Extremities: normal range of motion, non-tender, normal inspection Edema: no edema noted Arm (L), no edema noted Arm (R), no edema noted Leg (L), no edema noted Leg (R), no edema noted Pedal (L), no edema noted Pedal (R), no edema noted Generalized Neurologic: child watch attendant II-XII grossly normal, no motor/sensory deficits, alert, oriented x 3, responsive, normal mood/affect Skin: normal pigmentation, warm/dry, no diaphoresis Butch Murray M.D. Jan 12, 2020 11:30
[2020-01-12 12:00] VITALS: BP 110/62
--- NOTE | 2020-01-12 13:11 | Cardiac Electrophysiology PN ---
Assessment/Plan Assessment/Plan 1. Elevated troponin, likely due to patient's renal failure. Patient does not have any chest pain. EKG also showed inferolateral ischemia. We will repeat the EKG and get an echocardiogram 2. Severe hypernatremia Na 170. Down to 150s by iv fluid. FU Dr Rogers. 3. Acute renal failure, again likely due to dehydration. Patient is on IV fluid.Better 83/2.3 4. Rhabdomyolysis with a CK of more than 4000. Renal failure may be related to that, but again patient is getting hydration. 5. Lactic acidosis. Subjective Subjective Alert in NAD. No CP or SOB Objective Last 24 Hour Vital Signs Date Time Temp Pulse Resp B/P (MAP) Pulse Ox O2 Delivery O2 Flow Rate FiO2 01/12/20 08:16 78 97/60 01/12/20 08:15 77 01/12/20 08:00 Room Air 01/12/20 08:00 98.7 78 20 96/65 (75) 96 78 01/12/20 04:00 Room Air 01/12/20 04:00 97.5 74 15 123/72 (89) 78 01/12/20 03:35 73 01/12/20 00:00 Room Air 01/12/20 00:00 97.6 74 15 111/71 (84) 78 01/11/20 23:33 75 01/11/20 20:49 78 117/77 01/11/20 20:00 Room Air 01/11/20 20:00 97.5 78 15 117/77 (90) 78 01/11/20 19:39 Room Air 01/11/20 19:37 94 01/11/20 18:00 98.0 81 22 114/60 (78) 99 01/11/20 18:00 98.8 84 17 113/75 99 Room Air 01/11/20 16:21 98.8 88 19 110/79 100 Room Air 01/11/20 14:10 98.8 87 17 113/82 96 Room Air Intake and Output 01/11/20 01/12/20 19:00 07:00 Intake Total 900 ml 1396 ml Balance 900 ml 1396 ml Intake Oral 0 ml 300 ml IV Total 900 ml 1096 ml # Voids 2 # Bowel Movements 2 Laboratory Tests Test 01/11/20 20:15 01/12/20 03:30 01/12/20 03:35 Sodium Level 162 MMOL/L (136-145) #*H 154 MMOL/L (136-145) H Potassium Level 3.6 MMOL/L (3.5-5.1) 3.2 MMOL/L (3.5-5.1) L Chloride Level 118 MMOL/L (98-107) H 116 MMOL/L (98-107) H Carbon Dioxide Level 33 MMOL/L (21-32) H 33 MMOL/L (21-32) H Anion Gap 11 mmol/L (5-15) 5 mmol/L (5-15) Blood Urea Nitrogen 102 mg/dL (7-18) H 83 mg/dL (7-18) H Creatinine 3.6 MG/DL (0.55-1.30) H 2.3 MG/DL (0.55-1.30) H Estimat Glomerular Filtration Rate 20.2 mL/min (>60) 33.8 mL/min (>60) Glucose Level 157 MG/DL (74-106) H 162 MG/DL (74-106) H Lactic Acid Level 2.60 mmol/L (0.4-2.0) H Calcium Level 8.3 MG/DL (8.5-10.1) L 7.7 MG/DL (8.5-10.1) L Total Creatine Kinase 4054 U/L (26-308) H 3521 U/L (26-308) H Troponin I 0.607 ng/mL (0.000-0.056) 0.445 ng/mL (0.000-0.056) White Blood Count 10.6 K/UL (4.8-10.8) Red Blood Count 4.41 M/UL (4.70-6.10) L Hemoglobin 13.1 G/DL (14.2-18.0) L Hematocrit 40.9 % (42.0-52.0) #L Mean Corpuscular Volume 93 FL (80-99) Mean Corpuscular Hemoglobin 29.8 PG (27.0-31.0) Mean Corpuscular Hemoglobin Concent 32.0 G/DL (32.0-36.0) Red Cell Distribution Width 12.8 % (11.6-14.8) Platelet Count 202 K/UL (150-450) Mean Platelet Volume 7.3 FL (6.5-10.1) Neutrophils (%) (Auto) 78.9 % (45.0-75.0) H Lymphocytes (%) (Auto) 15.4 % (20.0-45.0) L Monocytes (%) (Auto) 3.7 % (1.0-10.0) Eosinophils (%) (Auto) 1.1 % (0.0-3.0) Basophils (%) (Auto) 1.0 % (0.0-2.0) Phosphorus Level 3.8 MG/DL (2.5-4.9) Total Bilirubin 1.6 MG/DL (0.2-1.0) H Direct Bilirubin 0.2 MG/DL (0.0-0.3) Aspartate Amino Transf (AST/SGOT) 77 U/L (15-37) H Alanine Aminotransferase (ALT/SGPT) 52 U/L (12-78) Alkaline Phosphatase 37 U/L (46-116) L Total Protein 6.4 G/DL (6.4-8.2) # Albumin 3.0 G/DL (3.4-5.0) L Globulin 3.4 g/dL Albumin/Globulin Ratio 0.9 (1.0-2.7) L Thyroid Stimulating Hormone (TSH) 0.977 uiU/mL (0.358-3.740) Free Thyroxine 0.99 NG/DL (0.76-1.46) Objective HEAD AND NECK: No JVD. LUNGS: Clear. CARDIOVASCULAR: Regular S1 and S2 with no gallop or murmur. ABDOMEN: Soft. EXTREMITIES: No pitting edema. Huan De Luna MD Jan 12, 2020 13:11
--- NOTE | 2020-01-12 13:13 | Nephrology Progress Note ---
Assessment/Plan Plan #TOM likely pre-renal azotemia due to dehydration and rhabdo- r/o ATN #lactic acidosis #hypernatremia #Tropenemia #transaminitis #possible rhabdo #meningioma - switch to D5w at 75 cc/hr - replete K - avoid rapid correction of sodium - target 1-2 per hour - cardiology eval for elevated trop - replete mag and phos as needed - renal US if Cr fails to improve with hydration -continue vanco and cefepime - monitor vanco level closely - avoid nephrotoxins - strict i&os - daily weights Subjective ROS Limited/Unobtainable: No Constitutional: Reports: weakness HEENT: Denies: no symptoms, eye pain, blurred vision, tearing, double vision, ear pain, ear discharge, nose pain, nose congestion, throat pain, throat swelling, mouth pain, mouth swelling, other Genitourinary: Reports: frequency; Denies: no symptoms, burning, discharge, flank pain, hematuria, incontinence, pain, urgency, other Neurologic/Psychiatric: Denies: no symptoms, anxiety, depressed, emotional problems, headache, numbness, paresthesia, pre-existing deficit, seizure, tingling, tremors, weakness, other Subjective Cr downtrending sodium downtrending Objective Objective Last 24 Hour Vital Signs Date Time Temp Pulse Resp B/P (MAP) Pulse Ox O2 Delivery O2 Flow Rate FiO2 01/12/20 08:16 78 97/60 01/12/20 08:15 77 01/12/20 08:00 Room Air 01/12/20 08:00 98.7 78 20 96/65 (75) 96 78 01/12/20 04:00 Room Air 01/12/20 04:00 97.5 74 15 123/72 (89) 78 01/12/20 03:35 73 01/12/20 00:00 Room Air 01/12/20 00:00 97.6 74 15 111/71 (84) 78 01/11/20 23:33 75 01/11/20 20:49 78 117/77 01/11/20 20:00 Room Air 01/11/20 20:00 97.5 78 15 117/77 (90) 78 01/11/20 19:39 Room Air 01/11/20 19:37 94 01/11/20 18:00 98.0 81 22 114/60 (78) 99 01/11/20 18:00 98.8 84 17 113/75 99 Room Air 01/11/20 16:21 98.8 88 19 110/79 100 Room Air 01/11/20 14:10 98.8 87 17 113/82 96 Room Air Intake and Output 01/11/20 01/12/20 19:00 07:00 Intake Total 900 ml 1396 ml Balance 900 ml 1396 ml Intake Oral 0 ml 300 ml IV Total 900 ml 1096 ml # Voids 2 # Bowel Movements 2 Laboratory Tests 01/11/20 20:15: Sodium Level 162#*H, Potassium Level 3.6, Chloride Level 118H, Carbon Dioxide Level 33H, Anion Gap 11, Blood Urea Nitrogen 102H, Creatinine 3.6H, Estimat Glomerular Filtration Rate 20.2, Glucose Level 157H, Lactic Acid Level 2.60H, Calcium Level 8.3L, Total Creatine Kinase 4054H, Troponin I 0.607H 01/12/20 03:30: Total Creatine Kinase 3521H 01/12/20 03:35: Sodium Level 154H, Potassium Level 3.2L, Chloride Level 116H, Carbon Dioxide Level 33H, Anion Gap 5, Blood Urea Nitrogen 83H, Creatinine 2.3H, Estimat Glomerular Filtration Rate 33.8, Glucose Level 162H, Calcium Level 7.7L, Troponin I 0.445H, White Blood Count 10.6, Red Blood Count 4.41L, Hemoglobin 13.1L, Hematocrit 40.9#L, Mean Corpuscular Volume 93, Mean Corpuscular Hemoglobin 29.8, Mean Corpuscular Hemoglobin Concent 32.0, Red Cell Distribution Width 12.8, Platelet Count 202, Mean Platelet Volume 7.3, Neutrophils (%) (Auto) 78.9H, Lymphocytes (%) (Auto) 15.4L, Monocytes (%) (Auto ) 3.7, Eosinophils (%) (Auto) 1.1, Basophils (%) (Auto) 1.0, Phosphorus Level 3.8, Total Bilirubin 1.6H, Direct Bilirubin 0.2, Aspartate Amino Transf (AST/ SGOT) 77H, Alanine Aminotransferase (ALT/SGPT) 52, Alkaline Phosphatase 37L, Total Protein 6.4#, Albumin 3.0L, Globulin 3.4, Albumin/Globulin Ratio 0.9L, Thyroid Stimulating Hormone (TSH) 0.977, Free Thyroxine 0.99 Height (Feet): 6 Height (Inches): 1.00 Weight (Pounds): 147 Taylor Clark M.D. Jan 12, 2020 13:13
[2020-01-12 16:00] VITALS: BP_SYST 114; BP_SYST 133; BP_DIAS 63; BP_DIAS 84
--- NOTE | 2020-01-12 19:07 | Neurology Progress Note ---
Interim History Interim History ROS Limited/Unobtainable: Yes Interim History 74 year old gentlemen who is a poor historian with unknown PMG presents from [facility] with lethargy and weakness. He stats he has been feeling tired for the last week. He states he has been eating one meal a day and drinking water. He has no fever, dysuria, abdominal pain, chest pain, cough or SOB. He states he wants to go back to his room and the [facility] and [facility] and does not want to be here. In the ED he was rehydrated and become more alert. Labs are significant for hypernatremia of 173 and Cr of 5. Hed CT shows meningioma and MRI shows encephalomalacia. Trop elevated to .6 Objective Physical Exam Last Vital Signs Date Time Temp Pulse Resp B/P (MAP) Pulse Ox O2 Delivery O2 Flow Rate FiO2 01/12/20 16:00 73 01/12/20 16:00 Room Air 01/12/20 16:00 97.5 21 114/63 (80) 96 01/11/20 11:30 99 Laboratory Tests Test 01/11/20 20:15 01/12/20 03:30 01/12/20 03:35 01/12/20 18:00 Sodium Level 162 MMOL/L (136-145) #*H 154 MMOL/L (136-145) H Potassium Level 3.6 MMOL/L (3.5-5.1) 3.2 MMOL/L (3.5-5.1) L Chloride Level 118 MMOL/L (98-107) H 116 MMOL/L (98-107) H Carbon Dioxide Level 33 MMOL/L (21-32) H 33 MMOL/L (21-32) H Anion Gap 11 mmol/L (5-15) 5 mmol/L (5-15) Blood Urea Nitrogen 102 mg/dL (7-18) H 83 mg/dL (7-18) H Creatinine 3.6 MG/DL (0.55-1.30) H 2.3 MG/DL (0.55-1.30) H Estimat Glomerular Filtration Rate 20.2 mL/min (>60) 33.8 mL/min (>60) Glucose Level 157 MG/DL (74-106) H 162 MG/DL (74-106) H Lactic Acid Level 2.60 mmol/L (0.4-2.0) H Calcium Level 8.3 MG/DL (8.5-10.1) L 7.7 MG/DL (8.5-10.1) L Total Creatine Kinase 4054 U/L (26-308) H 3521 U/L (26-308) H Troponin I 0.607 ng/mL (0.000-0.056) 0.445 ng/mL (0.000-0.056) 0.186 ng/mL (0.000-0.056) White Blood Count 10.6 K/UL (4.8-10.8) Red Blood Count 4.41 M/UL (4.70-6.10) L Hemoglobin 13.1 G/DL (14.2-18.0) L Hematocrit 40.9 % (42.0-52.0) #L Mean Corpuscular Volume 93 FL (80-99) Mean Corpuscular Hemoglobin 29.8 PG (27.0-31.0) Mean Corpuscular Hemoglobin Concent 32.0 G/DL (32.0-36.0) Red Cell Distribution Width 12.8 % (11.6-14.8) Platelet Count 202 K/UL (150-450) Mean Platelet Volume 7.3 FL (6.5-10.1) Neutrophils (%) (Auto) 78.9 % (45.0-75.0) H Lymphocytes (%) (Auto) 15.4 % (20.0-45.0) L Monocytes (%) (Auto) 3.7 % (1.0-10.0) Eosinophils (%) (Auto) 1.1 % (0.0-3.0) Basophils (%) (Auto) 1.0 % (0.0-2.0) Phosphorus Level 3.8 MG/DL (2.5-4.9) Total Bilirubin 1.6 MG/DL (0.2-1.0) H Direct Bilirubin 0.2 MG/DL (0.0-0.3) Aspartate Amino Transf (AST/SGOT) 77 U/L (15-37) H Alanine Aminotransferase (ALT/SGPT) 52 U/L (12-78) Alkaline Phosphatase 37 U/L (46-116) L Total Protein 6.4 G/DL (6.4-8.2) # Albumin 3.0 G/DL (3.4-5.0) L Globulin 3.4 g/dL Albumin/Globulin Ratio 0.9 (1.0-2.7) L Thyroid Stimulating Hormone (TSH) 0.977 uiU/mL (0.358-3.740) Free Thyroxine 0.99 NG/DL (0.76-1.46) General: well developed Head: normocophalic, atraumatic Neck: no rigidity EENT: benign Neurologic Exam Mental Status: awake, alert Speech: normal speech Cranial Nerve II: fundus normal Cranial Nerve VIII: normal hearing Cranial Nerve IX: normal palate elevation Sensory: normal light touch Gait: stable Objective largely non focal tangental and confused in time Impression/Recommendations Problems: (1) Hypernatremia (2) Rhabdomyolysis (3) Sepsis (4) Dehydration (5) Acute renal failure (6) Elevated troponin Diagnostic Impression Acute encephalopathy TOM Encephalomalacia, unclear why, pt unable to give hx improving - eeg pending No need for AEDs PT OT Franko Robles MD Jan 12, 2020 19:07
[2020-01-12 20:00] VITALS: BP 105/59
[2020-01-12] MEDS ORDERED: DEXTROSE IV ONE (22:00)
[2020-01-12] MEDS ORDERED: [UNRECOGNIZED DRUG - OTHER] IV ONE (22:00)
[2020-01-12] MEDS ORDERED: D5 1/2NS 1000ml IV ONE (22:00)
--- NOTE | 2020-01-12 22:55 | Consultation ---
History of Present Illness General Date patient seen: Jan 11, 2020 Chief Complaint: Generalized Weakness Referring physician: renaldo Reason for Consultation: TOM, hypernatremia Present Illness HPI 74 year old gentlemen who is a poor historian with unknown PMG presents from [facility] with lethargy and weakness. He stats he has been feeling tired for the last week. He states he has been eating one meal a day and drinking water. He has no fever, dysuria, abdominal pain, chest pain, cough or SOB. He states he wants to go back to his room and the [facility] and [facility] and does not want to be here. In the ED he was rehydrated and become more alert. Labs are significant for hypernatremia of 173 and Cr of 5. Hed CT shows meningioma and MRI shows encephalomalacia. Trop elevated to .6 Allergies: Coded Allergies: No Known Allergies (Unverified , 01/11/20) Medication History Scheduled Aspirin Ec* (Aspirin Ec*), 81 MG ORAL DAILY Metoprolol Tartrate (Metoprolol Tartrate), 12.5 MG ORAL Q12HR Patient History Healthcare decision maker Resuscitation status Advanced Directive on File Physical Exam Last 24 Hour Vital Signs Date Time Temp Pulse Resp B/P (MAP) Pulse Ox O2 Delivery O2 Flow Rate FiO2 01/12/20 21:20 68 105/59 01/12/20 21:15 68 105/59 01/12/20 16:00 73 01/12/20 16:00 Room Air 01/12/20 16:00 97.5 63 21 114/63 (80) 96 63 01/12/20 12:00 97.9 77 23 110/62 (78) 96 77 01/12/20 12:00 Room Air 01/12/20 11:42 72 01/12/20 08:16 78 97/60 01/12/20 08:15 77 01/12/20 08:00 Room Air 01/12/20 08:00 98.7 78 20 96/65 (75) 96 78 01/12/20 04:00 Room Air 01/12/20 04:00 97.5 74 15 123/72 (89) 78 01/12/20 03:35 73 01/12/20 00:00 Room Air 01/12/20 00:00 97.6 74 15 111/71 (84) 78 01/11/20 23:33 75 Intake and Output 01/11/20 01/12/20 19:00 07:00 Intake Total 900 ml 1396 ml Balance 900 ml 1396 ml Intake Oral 0 ml 300 ml IV Total 900 ml 1096 ml # Voids 2 # Bowel Movements 2 Laboratory Tests Test 01/12/20 03:30 01/12/20 03:35 01/12/20 18:00 Total Creatine Kinase 3521 U/L (26-308) H White Blood Count 10.6 K/UL (4.8-10.8) Red Blood Count 4.41 M/UL (4.70-6.10) L Hemoglobin 13.1 G/DL (14.2-18.0) L Hematocrit 40.9 % (42.0-52.0) #L Mean Corpuscular Volume 93 FL (80-99) Mean Corpuscular Hemoglobin 29.8 PG (27.0-31.0) Mean Corpuscular Hemoglobin Concent 32.0 G/DL (32.0-36.0) Red Cell Distribution Width 12.8 % (11.6-14.8) Platelet Count 202 K/UL (150-450) Mean Platelet Volume 7.3 FL (6.5-10.1) Neutrophils (%) (Auto) 78.9 % (45.0-75.0) H Lymphocytes (%) (Auto) 15.4 % (20.0-45.0) L Monocytes (%) (Auto) 3.7 % (1.0-10.0) Eosinophils (%) (Auto) 1.1 % (0.0-3.0) Basophils (%) (Auto) 1.0 % (0.0-2.0) Sodium Level 154 MMOL/L (136-145) H Potassium Level 3.2 MMOL/L (3.5-5.1) L Chloride Level 116 MMOL/L (98-107) H Carbon Dioxide Level 33 MMOL/L (21-32) H Anion Gap 5 mmol/L (5-15) Blood Urea Nitrogen 83 mg/dL (7-18) H Creatinine 2.3 MG/DL (0.55-1.30) H Estimat Glomerular Filtration Rate 33.8 mL/min (>60) Glucose Level 162 MG/DL (74-106) H Calcium Level 7.7 MG/DL (8.5-10.1) L Phosphorus Level 3.8 MG/DL (2.5-4.9) Total Bilirubin 1.6 MG/DL (0.2-1.0) H Direct Bilirubin 0.2 MG/DL (0.0-0.3) Aspartate Amino Transf (AST/SGOT) 77 U/L (15-37) H Alanine Aminotransferase (ALT/SGPT) 52 U/L (12-78) Alkaline Phosphatase 37 U/L (46-116) L Troponin I 0.445 ng/mL (0.000-0.056) 0.186 ng/mL (0.000-0.056) Total Protein 6.4 G/DL (6.4-8.2) # Albumin 3.0 G/DL (3.4-5.0) L Globulin 3.4 g/dL Albumin/Globulin Ratio 0.9 (1.0-2.7) L Thyroid Stimulating Hormone (TSH) 0.977 uiU/mL (0.358-3.740) Free Thyroxine 0.99 NG/DL (0.76-1.46) Height (Feet): 6 Height (Inches): 1.00 Weight (Pounds): 147 Medications Current Medications Medications (Trade) Dose Ordered Sig/Vlad Route PRN Reason Start Time Stop Time Status Last Admin Dose Admin Acetaminophen (Tylenol) 650 mg Q4H PRN ORAL Mild Pain (Pain Scale 1-3) 01/12/20 17:00 02/10/20 16:59 Acetaminophen (Tylenol) 650 mg Q4H PRN ORAL Temp >100.5 01/12/20 17:00 02/10/20 16:59 Aspirin (Ecotrin) 81 mg DAILY ORAL 01/13/20 09:00 02/26/20 08:59 Dextrose 1,000 ml @ 75 mls/hr [id number] IV 01/12/20 22:00 02/11/20 21:59 Dextrose (Dextrose 50%) 25 ml Q30M PRN IV Hypoglycemia 01/12/20 17:15 04/10/20 17:44 Dextrose (Dextrose 50%) 50 ml Q30M PRN IV Hypoglycemia 01/12/20 17:15 04/10/20 17:44 Diphenhydramine HCl (Benadryl) 25 mg Q6H PRN ORAL Itching/Pruritis 01/12/20 17:00 02/10/20 16:59 Heparin Sodium (Porcine) (Heparin 5000 units/ml) 5,000 units EVERY 12 HOURS SUBQ 01/12/20 21:00 02/25/20 20:59 01/12/20 21:16 Metoprolol Tartrate (Lopressor) 12.5 mg Q12HR ORAL 01/12/20 21:00 04/10/20 20:59 01/12/20 21:15 Ondansetron HCl (Zofran) 4 mg Q6H PRN IVP Nausea & Vomiting 01/12/20 17:00 02/10/20 16:59 Objective Narrative General: well developed Head: normocophalic, atraumatic Neck: no rigidity EENT: benign Neurologic Exam Mental Status: awake, alert Speech: normal speech Cranial Nerve II: fundus normal Cranial Nerve VIII: normal hearing Cranial Nerve IX: normal palate elevation Sensory: normal light touch Gait: stable Objective largely non focal tangental and confused in time Assessment/Plan Problem List: (1) Hypernatremia ICD Codes: E87.0 - Hyperosmolality and hypernatremia SNOMED: 845120505 (2) Rhabdomyolysis ICD Codes: M62.82 - Rhabdomyolysis SNOMED: 096613242 (3) Sepsis ICD Codes: A41.9 - Sepsis, unspecified organism SNOMED: 43542075, 703229549, 786112429 (4) Dehydration ICD Codes: E86.0 - Dehydration SNOMED: 74321702, 490274998, 806943730 (5) Acute renal failure ICD Codes: N17.9 - Acute kidney failure, unspecified SNOMED: 94045465 (6) Elevated troponin ICD Codes: R79.89 - Other specified abnormal findings of blood chemistry SNOMED: 667291253, 378648303, 412757685 Assessment/Plan: Problems: (1) Hypernatremia (2) Rhabdomyolysis (3) Sepsis (4) Dehydration (5) Acute renal failure (6) Elevated troponin Diagnostic Impression Acute encephalopathy TOM Encephalomalacia, unclear why, pt unable to give hx eeg No need for AEDs PT OT Franko Robles MD Jan 12, 2020 22:55
[2020-01-13 00:47] VITALS: BP 111/61
[2020-01-13 04:00] VITALS: BP 105/64
[2020-01-13 07:22] LABS: BASOPHILS % (AUTO) 1.7 % (0.0-2.0); EOSINOPHILS % (AUTO) 4.2 % (0.0-3.0); HEMATOCRIT 36.6 % (42.0-52.0); HEMOGLOBIN 12.3 G/DL (14.2-18.0); LYMPHOCYTES % (AUTO) 23.3 % (20.0-45.0); MEAN CORPUSCULAR VOLUME 91 FL (80-99); MONOCYTES % (AUTO) 7.6 % (1.0-10.0); NEUTROPHILS % (AUTO) 63.2 % (45.0-75.0); PLATELET COUNT 163 K/UL (150-450); RED BLOOD COUNT 4.01 M/UL (4.70-6.10); RED CELL DISTRIBUTION WIDTH 12.9 % (11.6-14.8); WHITE BLOOD COUNT 5.8 K/UL (4.8-10.8)
[2020-01-13 07:46] LABS: ALANINE AMINOTRANSFERASE 56 U/L (12-78); ALBUMIN 2.8 G/DL (3.4-5.0); ALBUMIN/GLOBULIN RATIO 0.9 (1.0-2.7); ALKALINE PHOSPHATASE 38 U/L (46-116); ANION GAP 5 mmol/L (5-15); ASPARTATE AMINO TRANSFERASE 62 U/L (15-37); BILIRUBIN,TOTAL 1.7 MG/DL (0.2-1.0); BLOOD UREA NITROGEN 31 mg/dL (7-18); CALCIUM 7.5 MG/DL (8.5-10.1); CARBON DIOXIDE 33 MMOL/L (21-32); CHLORIDE 110 MMOL/L (98-107); CREATININE 1.1 MG/DL (0.55-1.30); PHOSPHORUS 4.1 MG/DL (2.5-4.9); POTASSIUM 3.2 MMOL/L (3.5-5.1); SODIUM 148 MMOL/L (136-145)
[2020-01-13 07:49] LABS: BILIRUBIN,DIRECT 0.2 MG/DL (0.0-0.3)
[2020-01-13 07:57] LABS: CREATINE KINASE 1668 U/L (26-308)
[2020-01-13 08:00] VITALS: BP 106/61
[2020-01-13] MEDS ORDERED: Aspirin EC 81mg tab ORAL SCH (09:00)
[2020-01-13] MEDS ORDERED: ASPIRIN EC81 MG ORAL (10:16)
[2020-01-13] MEDS ORDERED: LOPRESSOR25 M1 ORAL (10:16)
--- NOTE | 2020-01-13 10:32 | Discharge Instructions ---
Discharge Instructions Discharge Instructions Call MD/Return to Hospital if: Fatigued, chest pain, short of breath or fever Services at Discharge: other - Board and care Diet: high calorie protein Activity: light activity For Congestive Heart Failure Reminder Report to your physician any weight gain of 5 pounds or more in one week. Butch Murray M.D. Jan 13, 2020 10:32
--- NOTE | 2020-01-13 10:44 | Discharge Summary ---
Discharge Summary Hospital Course Date of Admission Jan 11, 2020 at 13:55 Date of Discharge 01/13/2020 Admitting Diagnosis FTT HPI 74 year old gentlemen who is a poor historian with unknown PMG presents from [facility] with lethargy and weakness. He stats he has been feeling tired for the last week. He states he has been eating one meal a day and drinking water. He has no fever, dysuria, abdominal pain, chest pain, cough or SOB. He states he wants to go back to his room and the [facility] and does not want to be here. In the ED he was rehydrated and become more alert. Labs are significant for hypernatremia of 173 and Cr of 5. Hed CT shows minegioma and MRI showe encephalomalacia. Trop elevated to .6 Hospital Course 74 year old male with an unknown PMH from [facility] presents with severe dehydration. and filaure to thrive. Patient was AAOx3 the who hospital stay. He felt his fatigue has improved. Expresses he would like to go home [place]. It turns out patient was on a "green juice and soup" only diet. He used to be overweight and is afraid that he was gaining his tatum back. I counseled him extensively on the imprtiece of a well rounded diet at his age. He refused a psychiatric eval and said he will follow up at the DC. Duriing his stay patient' s sodium corrected at an adequate rate. All other electrolytes corrected. He was evaluated by cardiology for elevated troponin with no chest pain which trended down. Started on ASA and metoprolol which he has been refusing. It was likely due to demand ischemia in the setting of ARF. His kidney function normalized and was urinating normally. He will go back to his [facility] and follow up with the DC. #Severe Volume Depletion - resolved # Hypernatremia - resolved # Rhabdomyolysis - improving # Acute renal failure -resolved # Lactacidosis - resolved # Polycythemia due to volume contraction - resolved #Elevated troponin with no chest pain - downtrended - likely demand ischemia - Trend troponin complete #Meningioma #Encephalomalacia -Follow up with neurology OP I spent 38 minutes on this patient with 28 minutes coordinating care with counseling. Discussed with Dr. Clark and Dr. De Luna. Reviewed imaging and labs. Discussed jama BUCHANAN. Made arrangments with faciliti for DC. Discharge Medications New Medications: Aspirin Ec* (Aspirin Ec*) 81 Mg Tablet.dr 81 MG ORAL DAILY for 30 Days, TAB Metoprolol Tartrate (Metoprolol Tartrate) 25 Mg Tablet 12.5 MG ORAL Q12HR for 30 Days, TAB Discharge Condition Upon Discharge: stable Discharge Vital Signs Last Vital Signs Date Time Temp Pulse Resp B/P (MAP) Pulse Ox O2 Delivery O2 Flow Rate FiO2 01/13/20 08:00 97.9 65 18 106/61 (76) 98 01/12/20 21:00 Room Air 01/11/20 11:30 99 Discharge Disposition Patient was discharged to board and care. Discharge Diagnoses: (1) Acute renal failure (2) Rhabdomyolysis (3) Dehydration (4) Elevated troponin (5) Hypernatremia Discharge Instructions Discharge Instructions Call MD/Return to Hospital if: Fatigued, chest pain, short of breath or fever Services Upon Discharge: other - Board and care Activity: light activity Butch Murray M.D. Jan 13, 2020 10:44
[2020-01-13 12:00] VITALS: BP 107/67
[2020-01-13 13:10] LABS: ANION GAP 2 mmol/L (5-15); BLOOD UREA NITROGEN 23 mg/dL (7-18); CALCIUM 7.7 MG/DL (8.5-10.1); CARBON DIOXIDE 33 MMOL/L (21-32); CHLORIDE 110 MMOL/L (98-107); CREATININE 1.1 MG/DL (0.55-1.30); POTASSIUM 3.6 MMOL/L (3.5-5.1); SODIUM 145 MMOL/L (136-145)
--- NOTE | 2020-01-13 13:54 | Nephrology Progress Note ---
Assessment/Plan Plan #TOM likely pre-renal azotemia due to dehydration and rhabdo- r/o ATN #lactic acidosis #hypernatremia #Tropenemia #transaminitis #possible rhabdo #meningioma - switch to D5w at 75 cc/hr - replete K - avoid rapid correction of sodium - target 1-2 per hour - cardiology eval for elevated trop - replete mag and phos as needed - renal US if Cr fails to improve with hydration -continue vanco and cefepime - monitor vanco level closely - avoid nephrotoxins - strict i&os - daily weights Subjective ROS Limited/Unobtainable: No Constitutional: Reports: weakness HEENT: Denies: no symptoms, eye pain, blurred vision, tearing, double vision, ear pain, ear discharge, nose pain, nose congestion, throat pain, throat swelling, mouth pain, mouth swelling, other Genitourinary: Denies: no symptoms, burning, discharge, frequency, flank pain, hematuria, incontinence, pain, urgency, other Neurologic/Psychiatric: Denies: no symptoms, anxiety, depressed, emotional problems, headache, numbness, paresthesia, pre-existing deficit, seizure, tingling, tremors, weakness, other Subjective Cr downtrending sodium downtrending Objective Objective Last 24 Hour Vital Signs Date Time Temp Pulse Resp B/P (MAP) Pulse Ox O2 Delivery O2 Flow Rate FiO2 01/13/20 12:00 97.7 60 20 107/67 (80) 98 01/13/20 09:00 Room Air 01/13/20 08:00 97.9 65 18 106/61 (76) 98 01/13/20 07:35 67 01/13/20 04:00 71 01/13/20 04:00 98.1 70 18 105/64 (78) 94 01/13/20 00:47 97.8 66 17 111/61 (78) 99 01/13/20 00:00 59 01/12/20 21:20 68 105/59 01/12/20 21:15 68 105/59 01/12/20 21:00 Room Air 01/12/20 20:00 97.9 68 17 105/59 (74) 99 01/12/20 20:00 86 01/12/20 16:00 73 01/12/20 16:00 Room Air 01/12/20 16:00 97.5 63 21 114/63 (80 96 63 Intake and Output 01/12/20 01/13/20 19:00 07:00 Intake Total 400 ml 1050 ml Output Total 900 ml 450 ml Balance -500 ml 600 ml Intake Oral 200 ml 600 ml IV Total 200 ml 450 ml Output Urine Total 900 ml 450 ml # Voids 3 Laboratory Tests 01/12/20 18:00: Troponin I 0.186H 01/13/20 05:26: Troponin I 0.095H, White Blood Count 5.8, Red Blood Count 4.01L, Hemoglobin 12.3L, Hematocrit 36.6L, Mean Corpuscular Volume 91, Mean Corpuscular Hemoglobin 30.6, Mean Corpuscular Hemoglobin Concent 33.6, Red Cell Distribution Width 12.9, Platelet Count 163, Mean Platelet Volume 7.1, Neutrophils (%) (Auto) 63.2, Lymphocytes (%) (Auto) 23.3, Monocytes (%) (Auto) 7.6, Eosinophils (%) (Auto) 4.2H, Basophils (%) (Auto) 1.7, Sodium Level 148H, Potassium Level 3.2L, Chloride Level 110H, Carbon Dioxide Level 33H, Anion Gap 5 , Blood Urea Nitrogen 31H, Creatinine 1.1#, Estimat Glomerular Filtration Rate > 60, Glucose Level 97, Calcium Level 7.5L, Phosphorus Level 4.1, Magnesium Level 2.5H, Total Bilirubin 1.7H, Direct Bilirubin 0.2, Aspartate Amino Transf ( AST/SGOT) 62H, Alanine Aminotransferase (ALT/SGPT) 56, Alkaline Phosphatase 38L , Total Creatine Kinase 1668H, Total Protein 6.0L, Albumin 2.8L, Globulin 3.2, Albumin/Globulin Ratio 0.9L 01/13/20 12:50: Sodium Level 145, Potassium Level 3.6, Chloride Level 110H, Carbon Dioxide Level 33H, Anion Gap 2L, Blood Urea Nitrogen 23H, Creatinine 1.1, Estimat Glomerular Filtration Rate > 60, Glucose Level 141H, Calcium Level 7.7L Height (Feet): 6 Height (Inches): 1.00 Weight (Pounds): 149 Taylor Clark M.D. Jan 13, 2020 13:54
--- NOTE | 2020-01-13 15:40 | Cardiac Electrophysiology PN ---
Assessment/Plan Assessment/Plan 1. Elevated troponin due to patient's renal failure. Patient does not have any chest pain. EKG also showed inferolateral ischemia. Echocardiogram Nl EF Stress test as out patient 2. Severe hypernatremia Na 170. Down to 145 by iv fluid. SELMA Rogers. 3. Acute renal failure, again likely due to dehydration. Resolved with IV fluid.c 4. Rhabdomyolysis with a CK of more than 4000. Renal failure may be related to that, but again patient is getting hydration. 5. Lactic acidosis. Subjective Subjective Alert in NAD. No CP or SOB. DC back to board and care pending Objective Last 24 Hour Vital Signs Date Time Temp Pulse Resp B/P (MAP) Pulse Ox O2 Delivery O2 Flow Rate FiO2 01/13/20 12:00 97.7 60 20 107/67 (80) 98 01/13/20 11:39 67 01/13/20 09:00 Room Air 01/13/20 08:00 97.9 65 18 106/61 (76) 98 01/13/20 07:35 67 01/13/20 04:00 71 01/13/20 04:00 98.1 70 18 105/64 (78) 94 01/13/20 00:47 97.8 66 17 111/61 (78) 99 01/13/20 00:00 59 01/12/20 21:20 68 105/59 01/12/20 21:15 68 105/59 01/12/20 21:00 Room Air 01/12/20 20:00 97.9 68 17 105/59 (74) 99 01/12/20 20:00 86 01/12/20 16:00 73 01/12/20 16:00 Room Air 01/12/20 16:00 97.5 63 21 114/63 (80) 96 63 Intake and Output 01/12/20 01/13/20 19:00 07:00 Intake Total 400 ml 1050 ml Output Total 900 ml 450 ml Balance -500 ml 600 ml Intake Oral 200 ml 600 ml IV Total 200 ml 450 ml Output Urine Total 900 ml 450 ml # Voids 3 Laboratory Tests Test 01/12/20 18:00 01/13/20 05:26 01/13/20 12:50 Troponin I 0.186 ng/mL (0.000-0.056) 0.095 ng/mL (0.000-0.056) White Blood Count 5.8 K/UL (4.8-10.8) Red Blood Count 4.01 M/UL (4.70-6.10) L Hemoglobin 12.3 G/DL (14.2-18.0) L Hematocrit 36.6 % (42.0-52.0) L Mean Corpuscular Volume 91 FL (80-99) Mean Corpuscular Hemoglobin 30.6 PG (27.0-31.0) Mean Corpuscular Hemoglobin Concent 33.6 G/DL (32.0-36.0) Red Cell Distribution Width 12.9 % (11.6-14.8) Platelet Count 163 K/UL (150-450) Mean Platelet Volume 7.1 FL (6.5-10.1) Neutrophils (%) (Auto) 63.2 % (45.0-75.0) Lymphocytes (%) (Auto) 23.3 % (20.0-45.0) Monocytes (%) (Auto) 7.6 % (1.0-10.0) Eosinophils (%) (Auto) 4.2 % (0.0-3.0) H Basophils (%) (Auto) 1.7 % (0.0-2.0) Sodium Level 148 MMOL/L (136-145) H 145 MMOL/L (136-145) Potassium Level 3.2 MMOL/L (3.5-5.1) L 3.6 MMOL/L (3.5-5.1) Chloride Level 110 MMOL/L (98-107) H 110 MMOL/L (98-107) H Carbon Dioxide Level 33 MMOL/L (21-32) H 33 MMOL/L (21-32) H Anion Gap 5 mmol/L (5-15) 2 mmol/L (5-15) L Blood Urea Nitrogen 31 mg/dL (7-18) H 23 mg/dL (7-18) H Creatinine 1.1 MG/DL (0.55-1.30) # 1.1 MG/DL (0.55-1.30) Estimat Glomerular Filtration Rate > 60 mL/min (>60) > 60 mL/min (>60) Glucose Level 97 MG/DL (74-106) 141 MG/DL (74-106) H Calcium Level 7.5 MG/DL (8.5-10.1) L 7.7 MG/DL (8.5-10.1) L Phosphorus Level 4.1 MG/DL (2.5-4.9) Magnesium Level 2.5 MG/DL (1.8-2.4) H Total Bilirubin 1.7 MG/DL (0.2-1.0) H Direct Bilirubin 0.2 MG/DL (0.0-0.3) Aspartate Amino Transf (AST/SGOT) 62 U/L (15-37) H Alanine Aminotransferase (ALT/SGPT) 56 U/L (12-78) Alkaline Phosphatase 38 U/L (46-116) L Total Creatine Kinase 1668 U/L (26-308) H Total Protein 6.0 G/DL (6.4-8.2) L Albumin 2.8 G/DL (3.4-5.0) L Globulin 3.2 g/dL Albumin/Globulin Ratio 0.9 (1.0-2.7) L Microbiology Date/Time Source Procedure Growth Status 01/11/20 11:04 Blood Blood Culture - Preliminary NO GROWTH AFTER 24 HOURS Resulted 01/11/20 10:54 Blood Blood Culture - Preliminary NO GROWTH AFTER 24 HOURS Resulted Objective HEAD AND NECK: No JVD. LUNGS: Clear. CARDIOVASCULAR: Regular S1 and S2 with no gallop or murmur. ABDOMEN: Soft. EXTREMITIES: No pitting edema. Huan De Luna MD Jan 13, 2020 15:40
[2020-01-13 16:00] VITALS: BP 106/61
[2020-01-13] MEDS ORDERED: D5 1/2NS 1000ml IV ONE (17:34)
--- NOTE | 2020-01-13 21:49 | Neurology Progress Note ---
Interim History Interim History ROS Limited/Unobtainable: No Interim History improved, interactive today Objective Physical Exam Last Vital Signs Date Time Temp Pulse Resp B/P (MAP) Pulse Ox O2 Delivery O2 Flow Rate FiO2 01/13/20 16:00 97.5 68 18 106/61 (76) 98 01/13/20 09:00 Room Air 01/11/20 11:30 99 Laboratory Tests Test 01/13/20 05:26 01/13/20 12:50 White Blood Count 5.8 K/UL (4.8-10.8) Red Blood Count 4.01 M/UL (4.70-6.10) L Hemoglobin 12.3 G/DL (14.2-18.0) L Hematocrit 36.6 % (42.0-52.0) L Mean Corpuscular Volume 91 FL (80-99) Mean Corpuscular Hemoglobin 30.6 PG (27.0-31.0) Mean Corpuscular Hemoglobin Concent 33.6 G/DL (32.0-36.0) Red Cell Distribution Width 12.9 % (11.6-14.8) Platelet Count 163 K/UL (150-450) Mean Platelet Volume 7.1 FL (6.5-10.1) Neutrophils (%) (Auto) 63.2 % (45.0-75.0) Lymphocytes (%) (Auto) 23.3 % (20.0-45.0) Monocytes (%) (Auto) 7.6 % (1.0-10.0) Eosinophils (%) (Auto) 4.2 % (0.0-3.0) H Basophils (%) (Auto) 1.7 % (0.0-2.0) Sodium Level 148 MMOL/L (136-145) H 145 MMOL/L (136-145) Potassium Level 3.2 MMOL/L (3.5-5.1) L 3.6 MMOL/L (3.5-5.1) Chloride Level 110 MMOL/L (98-107) H 110 MMOL/L (98-107) H Carbon Dioxide Level 33 MMOL/L (21-32) H 33 MMOL/L (21-32) H Anion Gap 5 mmol/L (5-15) 2 mmol/L (5-15) L Blood Urea Nitrogen 31 mg/dL (7-18) H 23 mg/dL (7-18) H Creatinine 1.1 MG/DL (0.55-1.30) # 1.1 MG/DL (0.55-1.30) Estimat Glomerular Filtration Rate > 60 mL/min (>60) > 60 mL/min (>60) Glucose Level 97 MG/DL (74-106) 141 MG/DL (74-106) H Calcium Level 7.5 MG/DL (8.5-10.1) L 7.7 MG/DL (8.5-10.1) L Phosphorus Level 4.1 MG/DL (2.5-4.9) Magnesium Level 2.5 MG/DL (1.8-2.4) H Total Bilirubin 1.7 MG/DL (0.2-1.0) H Direct Bilirubin 0.2 MG/DL (0.0-0.3) Aspartate Amino Transf (AST/SGOT) 62 U/L (15-37) H Alanine Aminotransferase (ALT/SGPT) 56 U/L (12-78) Alkaline Phosphatase 38 U/L (46-116) L Total Creatine Kinase 1668 U/L (26-308) H Troponin I 0.095 ng/mL (0.000-0.056) Total Protein 6.0 G/DL (6.4-8.2) L Albumin 2.8 G/DL (3.4-5.0) L Globulin 3.2 g/dL Albumin/Globulin Ratio 0.9 (1.0-2.7) L General: well developed Head: normocophalic, atraumatic Neck: no rigidity EENT: benign Neurologic Exam Mental Status: awake, alert Speech: normal speech Cranial Nerve II: fundus normal Cranial Nerve VIII: normal hearing Cranial Nerve IX: normal palate elevation Sensory: normal light touch Gait: stable Objective largely non focal tangental and confused in time Impression/Recommendations Problems: (1) Hypernatremia (2) Rhabdomyolysis (3) Sepsis (4) Dehydration (5) Acute renal failure (6) Elevated troponin Diagnostic Impression Acute encephalopathy TOM Encephalomalacia, unclear why, pt unable to give hx improving - eeg pending No need for AEDs PT OT Franko Robles MD Jan 13, 2020 21:49
--- NOTE | 2020-01-21 00:06 | Coder Physician Query ---
Clarification is required for compliance, coding accuracy, and to reflect severity of illness for this patient. Dear Dr. 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 He was evaluated by cardiology for elevated troponin with no chest pain which trended down. Started on ASA and metoprolol which he has been refusing. It was likely due to demand ischemia in the setting of ARF. His kidney function normalized and was urinating normally Severe Volume Depletion #Sepsis with unknown source Discharge Diagnoses: (1) Acute renal failure,(2) Rhabdomyolysis,(3) Dehydration (4) Elevated troponin,(5) Hypernatremia ------- A posssible diagnois of SEPSIS was made in the medical record in the H&P, progress notes, no mention of Sepsis in the Discharge Summary? Upon review, it is difficult to determine whether this diagnosis has been ruled in, ruled out,or is still being worked up. Please indicate below the status of the SEPSIS diagnosis. [] Ruled out [] Treated and resolve [] Presumed and treated [] Currently under treatment [] Still being worked-up Present on Admission: [] Yes [] No [] Clinically Undetermined Physician signature Date Please also document in your Progress Notes and/or Discharge Summary and indicate if the condition was present on admission. MEGAND
== END 2020-01-13 17:35 | disposition home or self-care (01) | DRG 872 ==
LOC: EDBD 10:36 → EMR 10:55 → EDBEDREQ 12:21 → EDBEDREQSVC 12:21 → 2W 13:55 → EDBEDREQ 14:53 → 2E 01-12 16:47
DX: A41.9 Sepsis, unspecified organism (principal); N17.9 Acute kidney failure, unspecified; E87.0 Hyperosmolality and hypernatremia; M62.82 Rhabdomyolysis; Z68.1 Body mass index [BMI] 19.9 or less, adult; I24.8 Other forms of acute ischemic heart disease; G93.40 Encephalopathy, unspecified; R62.7 Adult failure to thrive; E86.0 Dehydration; Z87.891 Personal history of nicotine dependence; D75.1 Secondary polycythemia; G93.89 Other specified disorders of brain; D32.9 Benign neoplasm of meninges, unspecified
CPT/HCPCS: 36415; 70450; 70551; 71045; 80048; 80053; 82248; 82550; 83605; 83735; 83880; 84100; 84439; 84443; 84484; 85025; 85610; 85730; 87040; 93005; 93306; 96361; 96365; 96367; 96368; 96375; 99291; J7030; J8499